=== PATIENT | female | born 1980 | race Caucasian/White ===

== ENCOUNTER 2018-06-03 13:16 | Emergency (ER) | payer OTHER ==
[~2018-06-03] VITALS: Ht 167.6 cm; Wt 127.0 kg
--- NOTE | ~2018-06-03 | EKG ---
[place], [place] ELECTROCARDIOGRAM REPORT NAME: KATARINA EISENBERG UNIT #: [id number] ROOM: DOCTOR: EPIPHANY DRAFT REPORT BIRTHDATE: [birth year] [facility] Test Date: 2018-06-03 Test Time: 13:25:30 Pat Name: KATARINA EISENBERG Department: ED Room: Gender: F Wholesaler: Loni Mccarthy : 1980 Requested By: YAQUELIN TREJO Order Number: [id number] Reading MD: Roxana Goncalves MD Measurements Intervals [place] Rate: 97 P: 22 [place]: 113 QRS: 6 QRSD: 85 T: 47 QT: 339 QTc: 431 Interpretive Statements Sinus rhythm Borderline short [place] interval Low voltage, precordial leads Electronically Signed On 06-05-2018 9:03:18 PST by Roxana Goncalves MD CM:EKGRPT:ELECTROCARDIOGRAM REPORT [id number] YAQUELIN CHENG DRAFT REPORT YAQUELIN TREJO DO
[2018-06-03] MEDS ORDERED: BENZONATATE100 M1 PO (13:27)
[2018-06-03] MEDS ORDERED: PROAIR HFA8.5 GM INH (13:28)
[2018-06-03 14:26] LABS: BASO % 0.2 % (0.0-1.0); EOS # 0.2 10*3/uL (0.0-0.4); EOS % 1.9 % (1.0-4.0); HEMATOCRIT 37.1 % (37.0-47.0); HEMOGLOBIN 11.5 g/dl (12.0-16.0); LYMPH # 2.9 10*3/uL (1.3-4.4); LYMPH % 22.6 % (27.0-41.0); MEAN CELL VOLUME 79.1 fl (81.0-99.0); MEAN CORPUSCULAR HGB 24.5 pg (27.0-31.0); MEAN PLATELET VOLUME 9.8 fl (9.6-12.3); MONO # 0.5 10*3/uL (0.1-1.0); MONO % 4.1 % (3.0-9.0); NEUT % 70.8 % (47.0-73.0); PLATELET COUNT AUTOMATED 422 10*3/uL (130-400); RED BLOOD COUNT 4.69 10*6/uL (4.10-5.10); RED CELL DISTRI WIDTH 15.6 % (0-14.5); WHITE BLOOD COUNT 12.6 10*3/uL (4.8-10.8)
[2018-06-03 14:35] LABS: ACT PARTIAL THROMBO TIME 24.4 SECONDS (20.8-31.5)
[2018-06-03 14:44] LABS: LIPASE 139 U/L (73-393)
[2018-06-03 14:45] LABS: ALBUMIN 3.4 gm/dl (3.1-4.5); ALKALINE PHOSPHATASE 74 U/L (45-117); BUN 8 mg/dl (7-24); CHLORIDE 105 mmol/L (98-107); CREATININE 0.85 mg/dL (0.55-1.02); POTASSIUM 3.5 mmol/L (3.5-5.1); SGOT/AST 13 IU/L (3-35); SGPT/ALT 38 U/L (12-78); SODIUM 140 mmol/L (136-145); TOTAL PROTEIN 7.6 gm/dL (6.4-8.2)
[2018-06-03 14:48] LABS: BETA-HCG, QUANT < 1.0 mIU/mL (1-3)
[2018-06-03 14:49] LABS: TROPONIN I < 0.015 ng/ml (<0.045)
[2018-06-03] MEDS ORDERED: ZITHROMAX250 MG PO (16:37)
[2018-06-03] MEDS ORDERED: PREDNISONE50 MG PO (16:37)
== END 2018-06-03 16:41 | disposition home or self-care (01) ==
LOC: ED 13:16
PROVIDERS: Emergency Medicine
DX: J20.9 Acute bronchitis, unspecified (principal); R20.2 Paresthesia of skin; H92.02 Otalgia, left ear; Z88.0 Allergy status to penicillin; Z79.899 Other long term (current) drug therapy

== ENCOUNTER → 2018-06-14 | Outpatient (CLI) | payer OTHER ==
[~2018-06-14] MED LIST: BENZONATATE100 M1 PO; PREDNISONE50 MG PO; PROAIR HFA8.5 GM INH; ZITHROMAX250 MG PO
[2018-06-14 12:33] LABS: ALBUMIN 3.1 gm/dl (3.1-4.5); ALKALINE PHOSPHATASE 66 U/L (45-117); BUN 11 mg/dl (7-24); CHLORIDE 107 mmol/L (98-107); CREATININE 0.82 mg/dL (0.55-1.02); SGOT/AST 16 IU/L (3-35); SGPT/ALT 30 U/L (12-78); SODIUM 140 mmol/L (136-145); TOTAL PROTEIN 7.1 gm/dL (6.4-8.2)
[2018-06-14 12:53] LABS: BASO % 0.2 % (0.0-1.0); EOS # 0.3 10*3/uL (0.0-0.4); EOS % 3.1 % (1.0-4.0); HEMATOCRIT 37.7 % (37.0-47.0); HEMOGLOBIN 11.3 g/dl (12.0-16.0); LYMPH # 2.6 10*3/uL (1.3-4.4); LYMPH % 25.8 % (27.0-41.0); MEAN CELL VOLUME 80.7 fl (81.0-99.0); MEAN CORPUSCULAR HGB 24.2 pg (27.0-31.0); MONO # 0.7 10*3/uL (0.1-1.0); MONO % 6.5 % (3.0-9.0); NEUT # 6.5 10*3/uL (2.3-7.9); NEUT % 64.2 % (47.0-73.0); PLATELET COUNT AUTOMATED 419 10*3/uL (130-400); RED BLOOD COUNT 4.67 10*6/uL (4.10-5.10); RED CELL DISTRI WIDTH 15.9 % (0-14.5); WHITE BLOOD COUNT 10.1 10*3/uL (4.8-10.8)
== END | disposition home or self-care (01) ==
LOC: LAB 11:42
PROVIDERS: Nurse Practitioner Family
DX: Z23 Encounter for immunization (principal); J01.90 Acute sinusitis, unspecified; J40 Bronchitis, not specified as acute or chronic; F41.9 Anxiety disorder, unspecified; R05 Cough; R06.02 Shortness of breath

== ENCOUNTER → 2018-06-25 | Outpatient (CLI) | payer OTHER ==
[2018-06-25 16:57] LABS: IRON 29 ug/dL (50-170); LIPASE 181 U/L (73-393); TOTAL IRON BINDING CAPACITY 364 ug/dl (250-450)
== END | disposition home or self-care (01) ==
LOC: LAB 15:32
PROVIDERS: Nurse Practitioner Family
DX: D64.9 Anemia, unspecified (principal); R10.13 Epigastric pain; R05 Cough

== ENCOUNTER → 2018-07-03 | Outpatient (CLI) | payer OTHER | END | disposition home or self-care (01) | LOC: RAD 12:39 | DX: M54.12 Radiculopathy, cervical region (principal) ==

== ENCOUNTER → 2018-07-08 | Outpatient (CLI) | payer OTHER | END | disposition home or self-care (01) | LOC: US 09:53 | DX: R10.13 Epigastric pain (principal); D64.9 Anemia, unspecified; R05 Cough ==

== ENCOUNTER → 2018-07-18 | Outpatient (CLI) | payer OTHER | END | disposition home or self-care (01) | LOC: RAD 16:10 | DX: M25.412 Effusion, left shoulder (principal); M54.2 Cervicalgia ==

== ENCOUNTER → 2018-07-29 | Outpatient (CLI) | payer OTHER ==
--- NOTE | ~2018-07-29 | PF ---
[place], [place] PULMONARY FUNCTION TEST NAME: KATARINA EISENBERG [facility] #: [id number] UNIT #: [id number] ROOM: DOCTOR: FELY OROZCO MD,LOUANN BIRTHDATE: [birth year] DOS: 07/29/2018 ORDERED BY: Kelly Stein N.P. HISTORY: The patient is a 38-year-old female, height of 66 inches, weight of 280 pounds, BMI 45. The testing was done for assessment of symptoms of chronic cough with shortness of breath. The patient does have a history of low-grade tobacco use in the past for a short period of time, for about 1 year less than a half-a-pack of cigarettes a day which was stopped 2 years ago. SPIROMETRY: FVC of 3.83 liters, 96% predicted value. FEV1 of 3.40 liters, 105% predicted value. The ratio of FEV1/FVC 85%. Flow volume loop was noted as normal. No postbronchodilator changes noted. LUNG VOLUMES: Thoracic gas volume recorded as 55%, total lung capacity of 90%, residual volume 78%. The patient's lung diffusion recorded as 95% normal. The patient's resistance and passive conductance normal. FINAL IMPRESSION: Normal pulmonary function test. Clinical correlation will be advised. LOUANN GEIGER MD CM:PFREPORT:PULMONARY FUNCTION TEST [id number] LOUANN OROZCO MD
== END | disposition home or self-care (01) ==
LOC: CP 10:25
DX: D64.9 Anemia, unspecified (principal); R10.13 Epigastric pain; R05 Cough

== ENCOUNTER 2019-02-07 15:24 | Emergency (ER) | payer OTHER ==
[~2019-02-07] VITALS: Ht 167.6 cm; Wt 131.5 kg
--- NOTE | ~2019-02-07 | EKG ---
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
[2019-02-07 15:47] LABS: BASO % 0.2 % (0.0-1.0); EOS # 0.4 10*3/uL (0.0-0.4); EOS % 2.9 % (1.0-4.0); HEMATOCRIT 37.5 % (37.0-47.0); HEMOGLOBIN 11.6 g/dl (12.0-16.0); LYMPH # 3.2 10*3/uL (1.3-4.4); LYMPH % 24.8 % (27.0-41.0); MEAN CELL VOLUME 84.5 fl (81.0-99.0); MEAN CORPUSCULAR HGB 26.1 pg (27.0-31.0); MEAN CORPUSCULAR HGB CONC 30.9 g/dl (33.0-37.0); MONO # 0.7 10*3/uL (0.1-1.0); MONO % 5.6 % (3.0-9.0); NEUT # 8.6 10*3/uL (2.3-7.9); NEUT % 66.2 % (47.0-73.0); PLATELET COUNT AUTOMATED 402 10*3/uL (130-400); RED BLOOD COUNT 4.44 10*6/uL (4.10-5.10); RED CELL DISTRI WIDTH 14.6 % (0-14.5)
[2019-02-07 15:58] LABS: ACT PARTIAL THROMBO TIME 27.1 SECONDS (20.0-32.1); INTERNATIONAL NORM RATIO 0.9 (2.0-3.5)
[2019-02-07 16:14] LABS: ALBUMIN 3.4 gm/dl (3.1-4.5); ALKALINE PHOSPHATASE 80 U/L (45-117); BUN 12 mg/dl (7-24); CHLORIDE 106 mmol/L (98-107); CREATININE 0.84 mg/dL (0.55-1.02); POTASSIUM 3.6 mmol/L (3.5-5.1); SGOT/AST 15 IU/L (3-35); SGPT/ALT 23 U/L (12-78); SODIUM 139 mmol/L (136-145); TOTAL PROTEIN 7.2 gm/dL (6.4-8.2)
[2019-02-07 16:19] LABS: TROPONIN I < 0.015 ng/ml (<0.045)
== END 2019-02-07 17:55 | disposition home or self-care (01) ==
LOC: ED 15:24
PROVIDERS: Emergency Medicine
DX: M54.6 Pain in thoracic spine (principal); G43.909 Migraine, unspecified, not intractable, without status migrainosus; Z98.890 Other specified postprocedural states; Z79.899 Other long term (current) drug therapy; Z88.0 Allergy status to penicillin

== ENCOUNTER → 2019-06-03 | Outpatient (CLI) | payer OTHER | END | disposition home or self-care (01) | LOC: CT 13:24 | DX: G44.059 Short lasting unilateral neuralgiform headache with conjunctival injection and tearing (SUNCT), not intractable (principal) ==

== ENCOUNTER 2020-01-28 02:33 | Emergency (ER) | payer OTHER ==
[~2020-01-28] VITALS: Ht 167.6 cm; Wt 131.5 kg
[2020-01-28 03:17] LABS: HEMATOCRIT 37.1 % (37.0-47.0); MEAN CELL VOLUME 82.4 fl (81.0-99.0); MEAN CORPUSCULAR HGB 25.6 pg (27.0-31.0); MEAN PLATELET VOLUME 9.9 fl (9.6-12.3); PLATELET COUNT AUTOMATED 392 10*3/uL (130-400); RED CELL DISTRI WIDTH 14.3 % (0-14.5); WHITE BLOOD COUNT 13.6 10*3/uL (4.8-10.8)
[2020-01-28 03:27] LABS: INTERNATIONAL NORM RATIO 0.9 (2.0-3.5)
[2020-01-28 03:34] LABS: ALBUMIN 3.1 gm/dl (3.1-4.5); ALKALINE PHOSPHATASE 79 U/L (45-117); BUN 11 mg/dl (7-24); CHLORIDE 109 mmol/L (98-107); CREATININE 0.85 mg/dL (0.55-1.02); POTASSIUM 3.9 mmol/L (3.5-5.1); SGOT/AST 9 IU/L (3-35); SGPT/ALT 21 U/L (12-78); SODIUM 139 mmol/L (136-145); TOTAL PROTEIN 7.6 gm/dL (6.4-8.2)
[2020-01-28 03:36] LABS: PLATELET SUFFICIENCY NORMAL (NORMAL); TOTAL CELLS COUNTED 100 #CELLS
[2020-01-28 03:38] LABS: TROPONIN I < 0.015 ng/ml (<0.045)
[2020-01-28 05:30] LABS: BILIRUBIN NEGATIVE; BLOOD NEGATIVE (NEGATIVE); CLARITY CLEAR (CLEAR); COLOR YELLOW (YELLOW); GLUCOSE NEGATIVE; KETONE NEGATIVE; LEUKO ESTERASE NEGATIVE (NEGATIVE); NITRITE NEGATIVE (NEGATIVE); PH 8.5 (4.5-8.0); UROBILINOGEN 0.2 E.U./dl (0.0-1.0)
[2020-01-28 05:31] LABS: RBC 0-2 rbc/hpf (0-2); WBC 0-2 wbc/hpf (0-5)
== END 2020-01-28 06:33 | disposition home or self-care (01) ==
LOC: ED 02:33
PROVIDERS: Emergency Medicine
DX: R07.9 Chest pain, unspecified (principal); T38.0X5A Adverse effect of glucocorticoids and synthetic analogues, initial encounter; R73.9 Hyperglycemia, unspecified; K21.9 Gastro-esophageal reflux disease without esophagitis; Z88.0 Allergy status to penicillin; Z79.899 Other long term (current) drug therapy; Y92.89 Other specified places as the place of occurrence of the external cause

== ENCOUNTER 2020-02-10 15:01 | Emergency (ER) | payer OTHER ==
[~2020-02-10] VITALS: Ht 167.6 cm; Wt 131.5 kg
[2020-02-10 17:18] LABS: HEMATOCRIT 42.3 % (37.0-47.0); MEAN CELL VOLUME 83.9 fl (81.0-99.0); MEAN CORPUSCULAR HGB 25.2 pg (27.0-31.0); MEAN PLATELET VOLUME 10.4 fl (9.6-12.3); PLATELET COUNT AUTOMATED 444 10*3/uL (130-400); RED BLOOD COUNT 5.04 10*6/uL (4.10-5.10); RED CELL DISTRI WIDTH 13.8 % (0-14.5)
[2020-02-10 17:32] LABS: ALBUMIN 3.8 gm/dl (3.1-4.5); ALKALINE PHOSPHATASE 84 U/L (45-117); BUN 15 mg/dl (7-24); CHLORIDE 103 mmol/L (98-107); CREATININE 0.94 mg/dL (0.55-1.02); POTASSIUM 4.1 mmol/L (3.5-5.1); SGOT/AST 14 IU/L (3-35); SGPT/ALT 26 U/L (12-78); SODIUM 136 mmol/L (136-145); TOTAL PROTEIN 8.3 gm/dL (6.4-8.2)
[2020-02-10 17:43] LABS: TOTAL CELLS COUNTED 100 #CELLS
[2020-02-10 17:44] LABS: PLATELET SUFFICIENCY HIGH (NORMAL)
[2020-02-10 20:33] LABS: BILIRUBIN NEGATIVE; BLOOD NEGATIVE (NEGATIVE); CLARITY CLOUDY (CLEAR); COLOR YELLOW (YELLOW); GLUCOSE NEGATIVE; KETONE NEGATIVE; LEUKO ESTERASE NEGATIVE (NEGATIVE); NITRITE NEGATIVE (NEGATIVE); UROBILINOGEN 0.2 E.U./dl (0.0-1.0)
[2020-02-10 20:34] LABS: BACTERIA 2+; EPITHELIAL CELLS TNTC; MUCOUS 1+; RBC 0-2 rbc/hpf (0-2)
[2020-02-10] MEDS ORDERED: MACROBID100 M1 PO (20:56)
== END 2020-02-10 21:10 | disposition home or self-care (01) ==
LOC: ED 15:01
PROVIDERS: Nurse Practitioner; Physician Assistant
DX: N39.0 Urinary tract infection, site not specified (principal); R51 Headache; Z88.0 Allergy status to penicillin; Z79.899 Other long term (current) drug therapy

== ENCOUNTER → 2020-03-19 | Outpatient (CLI) | payer OTHER ==
[~2020-03-19] MED LIST changes: +MACROBID100 M1 PO
== END | disposition home or self-care (01) ==
LOC: COVID19 00:26
PROVIDERS: ATTEND Nurse Practitioner Family
DX: U07.1 COVID-19 (principal); R05 Cough; R43.2 Parageusia; R43.0 Anosmia

== ENCOUNTER → 2020-05-26 | Outpatient (CLI) | payer OTHER | END | disposition home or self-care (01) | LOC: LAB 12:41 → US 13:00 | PROVIDERS: ATTEND Nurse Practitioner Family | DX: M77.32 Calcaneal spur, left foot (principal); M79.605 Pain in left leg; E66.9 Obesity, unspecified ==

== ENCOUNTER → 2020-05-28 | Outpatient (CLI) | payer OTHER ==
[2020-05-28 15:35] LABS: POTASSIUM 4.2 mmol/L (3.5-5.1)
== END | disposition home or self-care (01) ==
LOC: LAB 05-27 13:15
PROVIDERS: ATTEND Nurse Practitioner Family
DX: M79.605 Pain in left leg (principal); M79.672 Pain in left foot; E66.9 Obesity, unspecified

== ENCOUNTER → 2020-07-28 | Outpatient (CLI) | payer OTHER ==
[~2020-07-28] MED LIST changes: +EMERGEN-C 500500 MG PO; +HYDR25T PO; +IRON325 M1 PO; +PERCOCET 5-3251 EACH PO; +PRILOSEC20 M1 PO; +TOPAMAX50 MG PO
== END | disposition home or self-care (01) ==
LOC: US 06-23 08:30
PROVIDERS: ATTEND Nurse Practitioner Family
DX: K59.00 Constipation, unspecified (principal); E86.0 Dehydration; I10 Essential (primary) hypertension; R90.89 Other abnormal findings on diagnostic imaging of central nervous system; R59.9 Enlarged lymph nodes, unspecified; N92.0 Excessive and frequent menstruation with regular cycle; R10.32 Left lower quadrant pain; R42 Dizziness and giddiness; Z12.4 Encounter for screening for malignant neoplasm of cervix

== ENCOUNTER → 2020-08-06 | Outpatient (CLI) | payer OTHER | END | disposition home or self-care (01) | LOC: MRI 08-04 14:00 | PROVIDERS: ATTEND Nurse Practitioner Family | DX: R51.9 Headache, unspecified (principal); R90.89 Other abnormal findings on diagnostic imaging of central nervous system ==

== ENCOUNTER 2020-09-04 00:14 | Emergency (ER) | payer OTHER ==
[~2020-09-04 00:14] MED LIST changes: -EMERGEN-C 500500 MG PO; -HYDR25T PO; -IRON325 M1 PO; -PERCOCET 5-3251 EACH PO; -PRILOSEC20 M1 PO; -TOPAMAX50 MG PO
[2020-09-04 00:33] LABS: MEAN CELL VOLUME 84.1 fl (81.0-99.0); MEAN CORPUSCULAR HGB 26.1 pg (27.0-31.0); MEAN PLATELET VOLUME 9.9 fl (9.6-12.3); PLATELET COUNT AUTOMATED 409 10*3/uL (130-400); RED BLOOD COUNT 4.64 10*6/uL (4.10-5.10); RED CELL DISTRI WIDTH 14.6 % (0-14.5); WHITE BLOOD COUNT 14.5 10*3/uL (4.8-10.8)
[2020-09-04 00:54] LABS: BASOPHILS 1 % (0-1); PLATELET SUFFICIENCY NORMAL (NORMAL); TOTAL CELLS COUNTED 100 #CELLS
[2020-09-04 00:55] LABS: ALBUMIN 3.1 gm/dl (3.1-4.5); ALKALINE PHOSPHATASE 82 U/L (45-117); BUN 18 mg/dl (7-24); CHLORIDE 106 mmol/L (98-107); CREATININE 1.07 mg/dL (0.55-1.02); POTASSIUM 3.7 mmol/L (3.5-5.1); SGOT/AST 13 IU/L (3-35); SGPT/ALT 30 U/L (12-78); SODIUM 138 mmol/L (136-145); TOTAL PROTEIN 7.5 gm/dL (6.4-8.2)
[2020-09-04 00:58] LABS: TROPONIN I < 0.015 ng/ml (<0.045)
[2020-09-06] MEDS ORDERED: TOPAMAX50 MG PO (08:52)
[2020-09-06] MEDS ORDERED: PRILOSEC20 M1 PO (08:52)
[2020-09-06] MEDS ORDERED: HYDR25T PO (08:53)
[2020-09-06] MEDS ORDERED: IRON325 M1 PO (08:53)
[2020-09-06] MEDS ORDERED: EMERGEN-C 500500 MG PO (08:54)
[2020-09-09] MEDS ORDERED: PERCOCET 5-3251 EACH PO (08:04)
== END 2020-09-04 01:37 | disposition home or self-care (01) ==
LOC: ED 00:14
PROVIDERS: Internal Medicine
DX: R00.2 Palpitations (principal); F41.9 Anxiety disorder, unspecified; D72.829 Elevated white blood cell count, unspecified; Z88.8 Allergy status to other drugs, medicaments and biological substances; Z79.899 Other long term (current) drug therapy

== ENCOUNTER → 2020-09-06 | Outpatient (CLI) | payer OTHER ==
[~2020-09-06] MED LIST changes: +EMERGEN-C 500500 MG PO; +HYDR25T PO; +IRON325 M1 PO; +PERCOCET 5-3251 EACH PO; +PRILOSEC20 M1 PO; +TOPAMAX50 MG PO
== END | disposition home or self-care (01) ==
LOC: COVID19 14:55
PROVIDERS: ATTEND Surgery
DX: Z01.812 Encounter for preprocedural laboratory examination (principal); Z20.822 Contact with and (suspected) exposure to COVID-19

== ENCOUNTER → 2020-09-09 | Day surgery (SDC) | payer OTHER ==
[~2020-09-09] VITALS: Ht 167.6 cm; Wt 140.6 kg
[2020-09-09 07:10] VITALS: BP 129/78
[2020-09-09 08:01] VITALS: BP 130/79
[2020-09-09 08:15] VITALS: BP 130/78
[2020-09-09 08:31] VITALS: BP 106/60
== END | disposition home or self-care (01) ==
LOC: SDC 09-06 08:00
PROVIDERS: ATTEND Surgery
DX: R59.1 Generalized enlarged lymph nodes (principal); K58.9 Irritable bowel syndrome, unspecified; I10 Essential (primary) hypertension; K21.9 Gastro-esophageal reflux disease without esophagitis; F41.9 Anxiety disorder, unspecified; J45.909 Unspecified asthma, uncomplicated; Z88.0 Allergy status to penicillin; Z79.899 Other long term (current) drug therapy

== ENCOUNTER → 2021-10-10 | Outpatient (CLI) | payer OTHER | END | disposition home or self-care (01) | LOC: RAD 12:26 | PROVIDERS: ATTEND Nurse Practitioner Family | DX: R10.9 Unspecified abdominal pain (principal); R53.83 Other fatigue; I10 Essential (primary) hypertension; R11.0 Nausea ==

== ENCOUNTER → 2023-06-20 | Outpatient (CLI) | payer BC | END | disposition home or self-care (01) | LOC: US 12:43 | PROVIDERS: ATTEND Nurse Practitioner Family | DX: R60.0 Localized edema (principal); M79.604 Pain in right leg; M79.605 Pain in left leg ==

== ENCOUNTER → 2024-01-23 | Outpatient (CLI) | payer OTHER | END | disposition home or self-care (01) | LOC: RAD 15:19 | PROVIDERS: ATTEND Nurse Practitioner Family | DX: M54.2 Cervicalgia (principal) ==